=== PATIENT | female | born 1990 | race Caucasian/White ===

== ENCOUNTER 2017-08-28 12:23 | Emergency (ER) | payer BC ==
[2017-08-28 12:48] VITALS: BP 135/94; PULSE 98; RESP 18; TEMP 99.3; O2SAT 98
--- NOTE | 2017-08-28 13:38 | EDPHY ---
H & P HPI/ROS: Chief complaint: Cold symptoms History of present illness: This is a 26-year-old female who presents to the emergency department for cold symptoms. She reports the onset of symptoms approximately 5 days ago. She has had fevers, runny nose, nasal congestion, sore throat, nonproductive cough, body aches and malaise. Symptoms have been persistent. She has used OTC medications with some improvement in symptoms. She denies other associated signs or symptoms including no trouble breathing, no rash. Smoking Status: Never smoked Physical Exam: General Appearance: Alert, no distress. Eyes: Pupils equal and round no pallor or injection. ENT, Mouth: Mucous membranes moist. Tympanic membranes, external auditory canals , external ears and surrounding soft tissue including over the mastoids are unremarkable. Nasopharynx is not injected. There is clear rhinorrhea. Oropharynx is injected. There is no edema. There is no exudate. There is no asymmetry. The uvula is midline. No elevation of the tongue. There is no hoarseness, no drooling, no trismus, no stridor. Respiratory: There are no retractions, lungs are clear to auscultation. Cardiovascular: Regular rate and rhythm. Neurological: Alert and oriented x4. Strength and sensation intact and symmetrical. No meningismus. Skin: Warm and dry, no rashes. Musculoskeletal: Neck is supple non tender. Extremities are symmetrical, full range of motion. Psychiatric: Patient is oriented X 3, there is no agitation. Constitutional: Initial Vital Signs Temperature (C) 37.4 C 08/28/17 12:40 Heart Rate 98 08/28/17 12:40 Respiratory Rate 18 08/28/17 12:40 Blood Pressure 135/94 H 08/28/17 12:40 O2 Sat (%) 98 08/28/17 12:40 O2 Delivery Mode Room Air Allergies/Adverse Reactions: No Known Allergies Allergy (Verified 08/28/17 12:46) Home Medications: Medication Instructions Recorded Bcp-Orthotricycline 05/16/09 MDM/Departure - [facility] ED Course/Re-evaluation: Patient seen under the supervision of my secondary supervising physician Dr. Memo Gamboa. Patient presents to the emergency department for cold symptoms. She is influenza B positive. Not within treatment time frame for Tamiflu. Nontoxic. She is appropriate for outpatient management. She will be discharged home. Home care is discussed. Return precautions are given. Patient voiced understanding and agreement with plan. Differential Diagnosis: Included but not limited to influenza, other viral syndromes, bronchitis, pneumonia - Depart Disposition: Home, Routine, Self-Care Clinical Impression: Viral syndrome Condition: Good Instructions: Viral Syndrome (ED) Additional Instructions: Follow-up with your primary care doctor for continued evaluation and care If symptoms worsen or new symptoms develop return to the emergency room for recheck Referrals: NONE *PRIMARY CARE P,. [Primary Care Provider] - As per Instructions Raul Pandey MD [Medical Doctor] - As per Instructions
== END 2017-08-28 13:52 | disposition home or self-care (01) ==
DX: B34.9 Viral infection, unspecified (principal)